=== PATIENT | male | born 1975 | race Caucasian/White ===

== ENCOUNTER 2023-05-31 08:30 | Emergency (ER) | payer OTHER ==
[2023-05-31] MEDS ORDERED: Lidocaine 1% with EPINEPHrine 1:100,000 20 ML MDV INJECT ONE (08:36)
== END 2023-05-31 09:08 | disposition home or self-care (01) ==
LOC: DL.ED 08:30 → MERGE 08:30 → DL.ED 09:08
DX: S01.01XA Laceration without foreign body of scalp, initial encounter (principal); W25.XXXA Contact with sharp glass, initial encounter; Y92.89 Other specified places as the place of occurrence of the external cause; Y99.0 Civilian activity done for income or pay
CPT/HCPCS: 12002; 99282; J3490